=== PATIENT | male | born 1970 | race Caucasian/White ===

== ENCOUNTER 2017-05-23 11:57 | Emergency (ER) | payer BC, OTHER ==
[~2017-05-23] VITALS: Ht 193 cm; Wt 99.8 kg
[2017-05-23 12:03] VITALS: BP_SYST 144
[2017-05-23 12:40] LABS: BILIRUBIN,URINE NEGATIVE (NEGATIVE); BLOOD, URINE 3+ (NEGATIVE); CLARITY/URINE SL HAZY (CLEAR); COLOR,URINE YELLOW (YELLOW); GLUCOSE,URINE NEGATIVE (NEGATIVE); KETONES,URINE NEGATIVE (NEGATIVE); LEUKOCYTE ESTERASE ,URINE NEGATIVE (NEGATIVE); NITRITE, URINE NEGATIVE (NEGATIVE); PH,URINE 5.5 (5.0-8.0); PROTEIN URINE NEGATIVE (NEGATIVE); UROBILINOGEN,URINE 0.2 (0.2-1.0)
[2017-05-23 12:56] LABS: BASOPHILS % (AUTO) 0.5 % (0.0-2.0); EOSINOPHILS # (AUTO) 0.2 K/uL (0.0-0.4); EOSINOPHILS % (AUTO) 3.1 % (0.0-4.0); HEMATOCRIT 46.3 % (36-54); HEMOGLOBIN 15.3 g/dL (14.0-18.0); LYMPHOCYTES # (AUTO) 1.3 K/uL (1.0-5.5); LYMPHOCYTES % (AUTO) 16.8 % (20.5-51.5); MEAN CORPUSCULAR HEMOGLOBIN 29 pg (27-31); MEAN CORPUSCULAR HGB CONC 33 % (32-36); MEAN CORPUSCULAR VOLUME 86 fL (79.0-98.0); MONOCYTES # (AUTO) 0.4 K/uL (0.0-1.0); MONOCYTES % (AUTO) 4.8 % (1.7-9.3); NEUTROPHILS # (AUTO) 5.7 K/uL (1.8-7.7); NEUTROPHILS % (AUTO) 74.8 % (40.0-70.0); PLATELET COUNT (AUTO) 244 K/uL (130-430); RED BLOOD CELL COUNT(AUTO) 5.37 MIL/uL (4.2-6.2); RED CELL DISTRIBUTION WIDTH 12.3 % (9.0-15.0); WHITE BLOOD COUNT (AUTO) 7.6 K/uL (4.8-10.8)
[2017-05-23 13:04] LABS: CALCIUM 9.4 mg/dL (8.4-11.0); CREATININE 1.5 mg/dL (0.55-1.30); POTASSIUM 3.3 mmol/L (3.5-5.1)
[2017-05-23 13:08] LABS: ALBUMIN 4.2 g/dL (3.4-4.8); TOTAL BILIRUBIN 0.4 mg/dL (0.0-1.0)
[2017-05-23 13:10] LABS: BACTERIA,URINE None Seen /HPF (None Seen); RBC,URINE 20-50 /HPF (0-3); WBC,URINE 0-3 /HPF (0-3)
[2017-05-23 13:15] LABS: PROTHROMBIN TIME 10.3 SECS (9.5-12.5)
[2017-05-23] MEDS ORDERED: KETOROLAC TROMETHAMINE 30 MG VIAL IVP ONE (13:30)
[2017-05-23] MEDS ORDERED: MAGNESIUM CITRATE 300 ML ORAL SOLUTION PO ONE (13:30)
[2017-05-23 13:45] VITALS: BP_SYST 128
== END 2017-05-23 13:45 | disposition home or self-care (01) ==
LOC: SED 11:57
DX: N20.0 Calculus of kidney (principal); R03.0 Elevated blood-pressure reading, without diagnosis of hypertension
CPT/HCPCS: 36415; 74176; 80053; 81000; 83605; 83690; 85025; 85610; 87040; 96374; 99285; J1885

== ENCOUNTER 2019-12-01 16:38 | Emergency (ER) | payer OTHER ==
[~2019-12-01] VITALS: Ht 162.6 cm; Wt 95.3 kg
[2019-12-01 16:42] VITALS: BP_SYST 123
--- NOTE | 2019-12-01 16:42 | NUR ---
Patient to ER bed 05 to gown for evaluation. Side rails up. Report given to VINNIE Young
--- NOTE | 2019-12-01 16:45 | NUR ---
EKG performed at BS by Mayo HARTLEY. Physician given copy of EKG for review.
--- NOTE | 2019-12-01 16:50 | NUR ---
Patient presented to ER C/O syncope. Patient A&Ox4, BIB BLS from home, laceration to back of head, bleeding controlled. Patient states he was at home, had syncope episode at home in yard. Per pt "was passed out for 30 seconds". Patient states he has hx of syncope episodes x8 years ago.
--- NOTE | 2019-12-01 17:02 | NUR ---
ER at bedside examining patient.
[2019-12-01] MEDS: NACL 0.9% 1,000 ML IV ONE (17:29)
[2019-12-01 17:42] LABS: BASOPHILS # (AUTO) 0.1 K/uL (0.0-0.2); EOSINOPHILS # (AUTO) 0.2 K/uL (0.0-0.4); EOSINOPHILS % (AUTO) 3.4 % (0.0-4.0); HEMATOCRIT 47.1 % (36-54); HEMOGLOBIN 15.8 g/dL (14.0-18.0); LYMPHOCYTES # (AUTO) 1.6 K/uL (1.0-5.5); LYMPHOCYTES % (AUTO) 28.2 % (20.5-51.5); MEAN CORPUSCULAR HEMOGLOBIN 29 pg (27-31); MEAN CORPUSCULAR HGB CONC 34 % (32-36); MEAN CORPUSCULAR VOLUME 88 fL (79.0-98.0); MONOCYTES # (AUTO) 0.4 K/uL (0.0-1.0); MONOCYTES % (AUTO) 6.5 % (1.7-9.3); NEUTROPHILS # (AUTO) 3.3 K/uL (1.8-7.7); NEUTROPHILS % (AUTO) 59.9 % (40.0-70.0); PLATELET COUNT (AUTO) 189 K/uL (130-430); RED BLOOD CELL COUNT(AUTO) 5.37 MIL/uL (4.2-6.2); RED CELL DISTRIBUTION WIDTH 13.7 % (9.0-15.0); WHITE BLOOD COUNT (AUTO) 5.5 K/uL (4.8-10.8)
[2019-12-01 18:14] LABS: CALCIUM 8.8 mg/dL (8.4-11.0); CREATININE 1.5 mg/dL (0.55-1.30); POTASSIUM 4.7 mmol/L (3.5-5.1)
[2019-12-01 18:20] LABS: TOTAL BILIRUBIN 0.3 mg/dL (0.0-1.0)
--- NOTE | 2019-12-01 18:30 | NUR ---
Patient has a 2 cm laceration to BACK OF HEAD. Dr. LUGO applied sutures using sterile technique. Edges well approximated. Site cleansed with . No bleeding noted. Pt tolerated well.
[2019-12-01] MEDS: LIDOCAINE 1% 10 MG/ML, 20 ML MDV INJ ONE (18:36)
--- NOTE | 2019-12-01 19:05 | NUR ---
PT , LEONORA UPDATED VIA PHONE CALL BY DR. LUGO
[2019-12-01] MEDS: DIPH-TET-PERTUS Vaccine 0.5 ML VIAL (ADACEL) I.M. ONE (19:14)
--- NOTE | 2019-12-01 19:19 | NUR ---
REPORT TO CARLOS [facility]
--- NOTE | 2019-12-01 20:20 | NUR ---
VSS no s/s of acute distress Resting on gurney rails up
--- NOTE | 2019-12-01 21:18 | NUR ---
Pt remains stable, A/O x 4, PERRLA
[2019-12-01 22:10] VITALS: BP_SYST 138
--- NOTE | 2019-12-01 22:10 | NUR ---
Patient to be transferred to [facility]. Is being transferred due to higher level of care. Receiving facility has accepting physician and available space. ER physician has signed transfer form. Patient or responsible alliance party has agreed to transfer and signed form. Patient belongings inventoried and will be sent with patient. Copy of nursing notes, lab reports, EKG, Physicians Orders and X-rays to be sent with patient. Report called to Shavonne at receiving facility. Receiving physician is Dr. Ortez. Acute [facility] ambulance service has been called for transfer
== END 2019-12-01 22:10 | disposition short-term general hospital (02) ==
LOC: SED 16:38
DX: S01.01XA Laceration without foreign body of scalp, initial encounter (principal); I60.8 Other nontraumatic subarachnoid hemorrhage; R55 Syncope and collapse; W22.8XXA Striking against or struck by other objects, initial encounter; Y93.89 Activity, other specified; Y92.89 Other specified places as the place of occurrence of the external cause; Y99.8 Other external cause status
CPT/HCPCS: 12002; 36415; 70450; 71045; 72125; 80053; 80061; 82550; 83880; 84484; 85025; 90471; 90715; 93005; 96360; 99285; J2001; J7030